=== PATIENT | female | born 1950 | race Caucasian/White ===

== ENCOUNTER 2019-07-26 08:23 | Outpatient (CLI) | payer MEDICARE ==
[2019-07-26] MEDS ORDERED: Cinnamon PO (09:05)
[2019-07-26] MEDS ORDERED: Turmeric PO (09:05)
[2019-07-26] MEDS ORDERED: LORA-446 PO (09:05)
[2019-07-26] MEDS ORDERED: Vitamin D3 PO (09:05)
[2019-07-26] MEDS ORDERED: BIOT1TAB2 PO (09:05)
[2019-07-26] MEDS ORDERED: MELO15TA24 PO (09:05)
[2019-07-26] MEDS ORDERED: METO25TA35 PO (09:05)
[2019-07-26 09:43] LABS: BASOPHILS # (AUTO) 0.08 x10^3/uL (0-0.1); BASOPHILS % (AUTO) 1 % (0-1); EOSINOPHILS # (AUTO) 0.12 x10^3/uL (0-0.4); EOSINOPHILS % (AUTO) 1 % (1-7); LYMPHOCYTES # (AUTO) 1.92 x10^3/uL (1-3.4); LYMPHOCYTES % (AUTO) 19 % (22-44); MD NO; MEAN CORPUSCULAR HEMOGLOBIN 31.1 pg (27.0-34.8); MEAN CORPUSCULAR HGB CONC 33.3 g/dL (32.4-35.8); MEAN CORPUSCULAR VOLUME 93.6 fL (80-100); MEAN PLATELET VOLUME 9.5 fL (7.4-10.4); MONOCYTES # (AUTO) 0.73 x10^3/uL (0.2-0.8); MONOCYTES % (AUTO) 7 % (2-9); NEUTROPHILS # (AUTO) 7.33 x10^3/uL (1.8-6.8); NEUTROPHILS % (AUTO) 72 % (42-75); PLATELET COUNT 244 x10^3/uL (130-400); RED BLOOD COUNT 4.74 x10^6/uL (3.82-5.3); RED CELL DISTRIBUTION WIDTH 13.4 % (9.6-15.2)
[2019-07-26 09:47] LABS: INTERNATIONAL NORMALIZED RATIO 0.94 (0.93-1.1)
[2019-07-26 09:51] LABS: ALANINE AMINOTRANSFERASE 40 U/L (12-78); ALBUMIN 4.3 g/dL (3.4-5.0); ANION GAP 5 mmol/L (5-15); CALCIUM 9.9 mg/dL (8.5-10.1); CHLORIDE 108 mmol/L (98-107); CREATININE 0.74 mg/dL (0.55-1.02)
[2019-07-26 09:54] LABS: ALKALINE PHOSPHATASE 79 U/L (45-117); BILIRUBIN,TOTAL 0.4 mg/dL (0.2-1.0); TOTAL PROTEIN 8.3 g/dL (6.4-8.2)
== END 2019-07-26 23:59 | disposition home or self-care (01) ==
LOC: STAR 08:23
PROVIDERS: ATTEND Orthopaedic Surgery
DX: Z01.818 Encounter for other preprocedural examination (principal); M16.11 Unilateral primary osteoarthritis, right hip
CPT/HCPCS: 36415; 80053; 83036; 85025; 85610; 85730; 87081; 87806; 93005; G0475

== ENCOUNTER 2019-07-30 08:35 | Observation (INO) | payer MEDICARE, OTHER ==
[~2019-07-30] VITALS: Ht 162.6 cm; Wt 62.0 kg
[~2019-07-30 08:35] MED LIST: BIOT1TAB2 PO; Cinnamon PO; LORA-446 PO; MELO15TA24 PO; METO25TA35 PO; Turmeric PO; Vitamin D3 PO
[2019-07-30] MEDS ORDERED: LACTATED RINGERS 1,000 ML IV SCH (09:00)
[2019-07-30] MEDS ORDERED: ACETAMINOPHEN 500 MG TABLET PO ONE (09:00)
[2019-07-30] MEDS ORDERED: GABAPENTIN 300 MG CAPSULE PO ONE (09:00)
[2019-07-30 09:04] VITALS: BP 125/80
[2019-07-30] MEDS ORDERED: KETOROLAC 60 MG/2 ML ONE (09:29)
[2019-07-30] MEDS ORDERED: SODIUM CHLORIDE 0.9% 50 ML ONE (09:29)
[2019-07-30] MEDS ORDERED: EPINEPHRINE 1 MG/ML, 1ML ONE (09:29)
[2019-07-30] MEDS ORDERED: ROPIvacaine/PF 0.2%, 20 ML ONE (09:29)
[2019-07-30] MEDS ORDERED: TRANEXAMIC ACID 100 MG/ML, 10ML ONE (09:30)
[2019-07-30] MEDS ORDERED: VANCOMYCIN 1,000 MG ONE (09:30)
[2019-07-30] MEDS ORDERED: CHLORHEXIDINE 15 ML UDC MM ONE (09:30)
[2019-07-30] MEDS ORDERED: FENTANYL PF 250 MCG/5ML ONE (10:36)
[2019-07-30] MEDS ORDERED: MIDAZOLAM 1 MG/ML, 2ML ONE (10:36)
[2019-07-30] MEDS ORDERED: GLYCOPYRROLATE 0.2MG/1ML, 5ML ONE (10:52)
[2019-07-30] MEDS ORDERED: CEFAZOLIN 1,000 MG ONE (10:52)
[2019-07-30] MEDS ORDERED: ONDANSETRON 2MG/ML, 2ML ONE (10:52)
[2019-07-30] MEDS ORDERED: PROPOFOL 10 MG/ML, 20ML ONE (10:52)
[2019-07-30] MEDS ORDERED: DEXAMETHASONE 4 MG/ML, 1ML ONE (10:52)
[2019-07-30] MEDS ORDERED: SUCCINYLCHOLINE 20 MG/ML, 10ML ONE (10:52)
[2019-07-30] MEDS ORDERED: OXYcodone 5 MG/5 ML ORAL.SOL UDC PO PRN (12:00)
[2019-07-30] MEDS ORDERED: hydrALAzine 20 MG/ML, 1ML IV PRN (12:00)
[2019-07-30] MEDS ORDERED: ONDANSETRON 2MG/ML, 2ML IVPush PRN ×2 (12:00→12:30)
[2019-07-30] MEDS ORDERED: FENTANYL PF 100 MCG/2ML IV PRN (12:00)
[2019-07-30] MEDS ORDERED: HYDROmorphone 1 MG/ML, 1ML INJ IVPush PRN ×2 (12:00→12:30)
[2019-07-30] MEDS ORDERED: LABETALOL 5MG/ML, 20ML IV PRN (12:00)
[2019-07-30] MEDS ORDERED: POLYETHYLENE GLYCOL 17 GM PACKET PO PRN (12:30)
[2019-07-30] MEDS ORDERED: ALUMINUM/MAG/SIMETHICONE 30 ML UDC PO PRN (12:30)
[2019-07-30] MEDS ORDERED: MAGNESIUM HYDROXIDE 8%, 30ML UDC PO PRN (12:30)
[2019-07-30] MEDS ORDERED: TRANEXAMIC ACID 1,000 MG in SODIUM CHLORIDE 0.9% 100 ML IVPB ONE (12:30)
[2019-07-30] MEDS ORDERED: OXYcodone IR 5MG TABLET PO PRN (12:30)
[2019-07-30] MEDS ORDERED: DIPHENHYDRAMINE 50 MG CAPSULE PO PRN (12:30)
[2019-07-30] MEDS ORDERED: ONDANSETRON 4 MG TABLET PO PRN (12:30)
[2019-07-30] MEDS ORDERED: ACETAMINOPHEN 650 MG/20.3 ML UDC PO PRN (12:30)
[2019-07-30] MEDS ORDERED: SENNA/DOCUSATE TABLET PO PRN (12:30)
[2019-07-30] MEDS ORDERED: OXYcodone 5 MG/5 ML ORAL.SOL UDC ONE (12:42)
[2019-07-30] MEDS ORDERED: HYDROmorphone 1 MG/ML, 1ML INJ ONE (12:42)
[2019-07-30] MEDS ORDERED: DEXAMETHASONE 4 MG/ML, 1ML IVPush ONE (13:19)
[2019-07-30] MEDS ORDERED: LORazepam 1MG TABLET PO PRN (13:30)
[2019-07-30 14:08] VITALS: BP 112/65
[2019-07-30] MEDS: METOPROLOL TARTRATE 25 MG TAB PO SCH (16:00)
[2019-07-30] MEDS ORDERED: ASPI81TA45 PO (16:37)
[2019-07-30 19:07] VITALS: BP 105/47
[2019-07-30] MEDS: POTASSIUM CHLORIDE 20 MEQ in D5%-0.45% NACL 1,000 ML IV SCH (20:00)
[2019-07-30] MEDS: CEFAZOLIN PMX 1GM/50ML 50 ML IVPB SCH (21:03)
[2019-07-30] MEDS: KETOROLAC 30 MG/1 ML IV SCH (21:03)
[2019-07-30] MEDS: ASPIRIN 81 MG TABLET EC PO SCH (21:03)
[2019-07-30] MEDS: DOCUSATE 100 MG CAPSULE PO SCH (21:03)
[2019-07-31 00:08] VITALS: BP 102/64
[2019-07-31 03:42] VITALS: BP 98/61
[2019-07-31] MEDS: CEFAZOLIN PMX 1GM/50ML 50 ML IVPB SCH (05:20)
[2019-07-31] MEDS: KETOROLAC 30 MG/1 ML IV SCH (05:20)
[2019-07-31] MEDS ORDERED: DEXAMETHASONE 4 MG/ML, 1ML IVPush ONE (06:00)
[2019-07-31] MEDS: POTASSIUM CHLORIDE 20 MEQ in D5%-0.45% NACL 1,000 ML IV SCH (06:06)
[2019-07-31 07:11] VITALS: BP 134/64
[2019-07-31] MEDS: METOPROLOL TARTRATE 25 MG TAB PO SCH (08:28)
[2019-07-31] MEDS: DOCUSATE 100 MG CAPSULE PO SCH (08:29)
[2019-07-31] MEDS: ASPIRIN 81 MG TABLET EC PO SCH (08:30)
== END 2019-07-31 11:02 | disposition home or self-care (01) ==
LOC: OUT 08:35 → ORIP 12:17 → 4NE 13:12 → DCLOUNGE 07-31 10:51
PROVIDERS: ADMIT Orthopaedic Surgery; ATTEND Orthopaedic Surgery
DX: Z03.818 Encounter for observation for suspected exposure to other biological agents ruled out (principal); M16.11 Unilateral primary osteoarthritis, right hip; I10 Essential (primary) hypertension; F17.200 Nicotine dependence, unspecified, uncomplicated; Z79.899 Other long term (current) drug therapy
CPT/HCPCS: 27130; 36415; 72170; 85014; 85018; 86850; 86900; 96365; 96366; 96375; 96376; 97110; 97162; 97530; C1713; C1776; G0378; J0171; J0330; J0690; J1100; J1170; J1885; J2250; J2405; J2704; J2795; J3010; U0001; J3370

== ENCOUNTER → 2020-01-21 | Outpatient (CLI) | payer MEDICARE ==
[~2020-01-21] MED LIST changes: +ASPI81TA45 PO
[2020-01-21 07:55] LABS: ALANINE AMINOTRANSFERASE 56 U/L (12-78); CALCIUM 8.9 mg/dL (8.5-10.1); CHOLESTEROL, TOTAL 194 mg/dL (140-239); CREATININE 0.71 mg/dL (0.55-1.02)
[2020-01-21 08:06] LABS: ALKALINE PHOSPHATASE 90 U/L (45-117); BILIRUBIN,TOTAL 0.4 mg/dL (0.2-1.0); CHOL/HDL RATIO 2.2; HDL CHOL % 45 % (28-40); HDL CHOLESTEROL (DIRECT) 88 mg/dL (40-60); LDL CHOLESTEROL,CALCULATED 92 mg/dL (54-169); TOTAL PROTEIN 7.4 g/dL (6.4-8.2); TRIGLYCERIDES 68 mg/dL (50-200); VLDL CHOLESTEROL 14 mg/dL (0-25)
[2020-01-21 08:13] LABS: ANION GAP 4 mmol/L (5-15); CHLORIDE 110 mmol/L (98-107)
[2020-01-21 08:22] LABS: BASOPHILS % (AUTO) 1 % (0-1); EOSINOPHILS % (AUTO) 2 % (1-7); LYMPHOCYTES % (AUTO) 27 % (22-44); MEAN CORPUSCULAR HEMOGLOBIN 31.4 pg (27.0-34.8); MEAN CORPUSCULAR HGB CONC 33.6 g/dL (32.4-35.8); MEAN PLATELET VOLUME 9.6 fL (7.4-10.4); MONOCYTES % (AUTO) 8 % (2-9); NEUTROPHILS % (AUTO) 63 % (42-75); PLATELET COUNT 230 x10^3/uL (130-400); RED CELL DISTRIBUTION WIDTH 13.3 % (9.6-15.2)
[2020-01-21 08:35] LABS: MD NO
== END | disposition home or self-care (01) ==
LOC: LAB 07:31
PROVIDERS: ATTEND Nurse Practitioner Family
DX: I10 Essential (primary) hypertension (principal)
CPT/HCPCS: 36415; 80053; 80061; 84443; 85025

== ENCOUNTER 2020-02-08 10:52 | Outpatient (CLI) | payer MEDICARE, OTHER | END 2020-02-08 23:59 | disposition home or self-care (01) | LOC: CFH 10:52 | PROVIDERS: ATTEND Nurse Practitioner Family | DX: Z12.31 Encounter for screening mammogram for malignant neoplasm of breast (principal); M81.0 Age-related osteoporosis without current pathological fracture; N95.9 Unspecified menopausal and perimenopausal disorder | CPT/HCPCS: 77063; 77067; 77080 ==